=== PATIENT | female | born 1950 | race African-American/Black ===

== ENCOUNTER → 2017-08-19 | Outpatient (CLI) | payer OTHER, MEDICARE | LOC: BRMIMAGING 10:18 | PROVIDERS: ATTEND Surgery | DX: Z12.31 Encounter for screening mammogram for malignant neoplasm of breast (principal) | CPT/HCPCS: G0202 ==

== ENCOUNTER 2017-11-27 06:46 | Emergency (ER) | payer OTHER, MEDICARE ==
[2017-11-27 06:53] VITALS: TEMP 98.4
--- NOTE | 2017-11-27 07:06 | EDPHY ---
HPI/HX/ROS/PE/MDM Narrative: CHIEF COMPLAINT: Right hip pain HPI: This patient is a 67 year old female with history of hypertension, kidney disease, and breast cancer complaining of pain to her right hip. 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 She states that the physician who placed this told her there was a benign fluid tumor extending into her hip, but she did not undergo any further intervention at that time. Recently, she has had increased discomfort in her hip. On 11/18/17, she visited her primary care provider and discussed the increased pain to her hip and back. Her pcp offered a needle drainage, but the patient declined. She has tried a heating pad for relief, which is generally effective. Last night, her pain became severe. She was unable to walk or sit up and had to crawl to the bathroom. She denies any numbness or weakness in her extremities. She does have chronic lower extremity edema, which she states has increased lately. She has not taken any medication for pain relief, and states she generally does not take pain pills. She denies chest pain, shortness of breath, fever, vomiting, diarrhea, incontinence of bladder or bowels, or other associated symptoms. REVIEW OF SYSTEMS: Aside from elements discussed in the HPI, a comprehensive 10-point review of systems was reviewed and is negative. PMH: Hypertension, Chronic kidney disease (baseline creatinine 1.4), Breast cancer s/p right breast lumpectomy and radiation. Gout. (Colchicine). Pseudotumor papilledema s/p SCRIPT SUPERVISOR shunt. SOCIAL HISTORY: . at bedside. No tobacco or alcohol use. PHYSICAL EXAM: General:Patient is alert, in no acute distress. BP 226/92 at triage. ENT:Eyes are normal to inspection. ENT inspection normal. Neck: Normal inspection. Full range of motion. Respiratory:No respiratory distress. Breath sounds normal bilaterally. Cardiovascular: Regular rate and rhythm. Strong peripheral pulses. Normal cap refill. Abdomen:The abdomen is nontender to palpation. There are no peritoneal signs. There are normal bowel sounds. Back: Pain to middle of right buttock, no increased tenderness to palpation. Normal to inspection. Skin: Normal color. No rash. Warm and dry. Extremities: Compression stockings on both lower extremities. Full range of motion. Neuro: Oriented x3. Normal motor function. Normal sensory function. ED Course: This 67 year old female with history of pseudotumor papilledema s/p SCRIPT SUPERVISOR shunt presents with increasing pain to middle of her right buttock. This area is normal in appearance and nontender to palpation. Plan for x-ray pelvis and lumbar spine. The patient declines any pain medication at this time. 07:31 Reviewed x-ray of pelvis and lumbar spine. No obvious abnormalities. Plan to order CT for further evaluation. I discussed this with the patient. She is amenable to this. 08:05 Reviewed I-stat. Creatinine 1.1. Plan to proceed with CT abdomen/pelvis and lumbar spine. 08:[address] Nam, radiologist. CT shows evidence of L5-S1 degenerative spine disease. Incidental pericardial effusion noted. No evidence of tumor. Plan for lab work including CBC, chemistries. Plan for echocardiogram to further evaluate the patient's pericardial effusion. 09:07 Reassessed patient. Discussed results. 09:30 Echocardiogram shows trivial pericardial effusion. 11:00 Reassessed patient. She continues to experience considerable pain and accepts my offer of IV pain medication. Plan to administer 0.2mg IV Dilaudid. Plan to discharge home in good condition with referral to mobile paint specialist and prescription for Percocet for pain relief. Follow up and return precautions discussed. She is comfortable with this plan. MDM: This patient presents with right buttock pain, but presentation is complicated by vague history of a previous tumor in that area, as well as remote placement of a shunt for what sounds like elevated CSF pressure. For those reasons, workup was expanded to include labs and CT of the abdomen/pelvis as well as L- spine. No acute abnormalities related to her pain are noted with the exception of severe spine disease at L5-S1 which corresponds well with presentation highly suggestive of sciatica. The patient has numerous other medical issues, including a pericardial effusion, a right axillary mass under investigation and what appears to be poorly controlled HTN, but these do not appear emergent nor related to her pain. I offered the patient pain medication both during her ED stay as well as to go home with numerous times which she declined, but finally accepted prior to discharge. I think she will need close follow-up with a mobile paint specialist and I have referred her to neurosugery. At this time, I see no indication for emergent MRI - there are no signs of infection or cauda equina etc. I do not think patient is a good candidate for steroids or NSAIDs given history of renal insufficiency. - Data Points Imaging Results: Imaging Impressions Lumbar Spine X-Ray 11/27/17 07:15 Impression: Degenerative changes described above including L5-S1 spondylolisthesis. 2. Standing AP Pelvis History: Right hip pain Findings: The hip joint cartilage spaces are symmetric and normal. The femoral heads are well rounded and normally mineralized. The pelvic ring is intact. The SI joints and pubic symphysis are normally aligned. There is possibly chondrocalcinosis of the symphysis pubis. There is no other soft tissue calcification or ossification. Impression: Negative right hip. Pelvis X-Ray 11/27/17 07:15 Impression: Degenerative changes described above including L5-S1 spondylolisthesis. 2. Standing AP Pelvis History: Right hip pain Findings: The hip joint cartilage spaces are symmetric and normal. The femoral heads are well rounded and normally mineralized. The pelvic ring is intact. The SI joints and pubic symphysis are normally aligned. There is possibly chondrocalcinosis of the symphysis pubis. There is no other soft tissue calcification or ossification. Impression: Negative right hip. Abdomen CT 11/27/17 08:05 Impression: 1. Moderate pericardial effusion and cardiomegaly. 2. Moderate hiatal hernia. 3. No urinary tract obstruction. 4. Atherosclerotic aorta and iliac arteries without aneurysm. 5. Degenerative lumbar spine resulting in L5-S1 moderate central canal stenosis and moderate to severe bilateral neural foraminal stenosis. 6. No evidence of buttock soft tissue masses, fluid collections, or iliac bone destructive osseous lesions. Findings and recommendations discussed with Emergency Department physician, Dr. Kyle Mak at 0845 hours on November 27, 2017. Final report concurs with initial preliminary interpretation. Lumbar Spine CT 11/27/17 08:05 Impression: 1. L5-S1: Moderate central canal stenosis and moderate to severe bilateral neural foraminal stenosis, secondary to severe bilateral facet arthropathy, and degenerative grade 1 anterolisthesis. 2. L4-L5: Moderate central canal stenosis, secondary to moderate bilateral facet arthropathy and disk bulge. 3. No lumbar compression fractures or sacral destructive osseous lesions. 4. Please see above findings. 5. If there is persistent pain or neurological deficit, recommend MR lumbar spine, if clinically indicated. Findings and recommendations discussed with Emergency Department physician, Dr. Kyle Mak at 0850 hours on November 27, 2017. Final report concurs with initial preliminary interpretation. Imaging: Discussed imaging studies w/ call center associate Radiologist, I viewed and interpreted images myself Laboratory Results: Laboratory Results 11/27/17 07:40 11/27/17 07:40 11/27/17 11/27/17 11/27/17 08:02 07:40 07:40 WBC 6.67 10^3/uL 10^3/uL (3.80-9.50) RBC 4.35 10^6/uL 10^6/uL (4.18-5.33) Hgb 13.3 g/dL g/dL (12.6-16.3) POC Hgb 13.9 gm/dL gm/dL (12.6-16.3) Hct 40.9 % % (38.0-47.0) POC Hct 41 % % (38-47) MCV 94.0 fL fL (81.5-99.8) MCH 30.6 pg pg (27.9-34.1) MCHC 32.5 g/dL g/dL (32.4-36.7) RDW 13.2 % % (11.5-15.2) Plt Count 283 10^3/uL 10^3/uL (150-400) MPV 9.8 fL fL (8.7-11.7) Neut % (Auto) 75.4 % H % (39.3-74.2) Lymph % (Auto) 15.3 % % (15.0-45.0) [place] % (Auto) 6.7 % % (4.5-13.0) Eos % (Auto) 1.9 % % (0.6-7.6) Baso % (Auto) 0.4 % % (0.3-1.7) Nucleat RBC Rel Count 0.0 % % (0.0-0.2) Absolute Neuts (auto) 5.02 10^3/uL 10^3/uL (1.70-6.50) Absolute Lymphs (auto) 1.02 10^3/uL 10^3/uL (1.00-3.00) Absolute Monos (auto) 0.45 10^3/uL 10^3/uL (0.30-0.80) Absolute Eos (auto) 0.13 10^3/uL 10^3/uL (0.03-0.40) Absolute Basos (auto) 0.03 10^3/uL 10^3/uL (0.02-0.10) Absolute Nucleated RBC 0.00 10^3/uL 10^3/uL (0-0.01) Immature Gran % 0.3 % % (0.0-1.1) Immature Gran # 0.02 10^3/uL 10^3/uL (0.00-0.10) POC Sodium 144 mEq/L mEq/L (135-145) Sodium 143 mEq/L mEq/L (135-145) POC Potassium 3.4 mEq/L mEq/L (3.3-5.0) Potassium 3.6 mEq/L mEq/L (3.5-5.2) POC Chloride 99 mEq/L mEq/L (97-110) Chloride 101 mEq/L mEq/L (97-110) Carbon Dioxide 30 mEq/l mEq/l (22-31) Anion Gap 12 mEq/L mEq/L (8-16) POC BUN 8 mg/dL mg/dL (7-23) BUN 9 mg/dL mg/dL (7-23) Creatinine 1.0 mg/dL mg/dL (0.6-1.0) POC Creatinine 1.2 mg/dL H mg/dL (0.6-1.0) Estimated GFR 55 Glucose 94 mg/dL mg/dL (70-100) POC Glucose 97 mg/dL mg/dL (70-100) Calcium 9.7 mg/dL mg/dL (8.5-10.4) Medications Given: Discontinued Medications Hydromorphone HCl (Dilaudid) 0.2 mg IVP EDNOW ONE Stop: 11/27/17 11:02 Last Admin: 11/27/17 11:05 Dose: 0.2 mg Point of Care Test Results: 11/27/17 08:02 POC Sodium 144 POC Potassium 3.4 POC Chloride 99 POC BUN 8 POC Creatinine 1.2 H POC Glucose 97 General Time Seen by Provider: 11/27/17 06:56 Initial Vital Signs: Initial Vital Signs Temperature (C) 36.9 C 11/27/17 06:51 Heart Rate 92 11/27/17 06:51 Respiratory Rate 20 11/27/17 06:51 Blood Pressure 226/92 H 11/27/17 06:51 O2 Sat (%) 78 L 11/27/17 06:51 O2 Delivery Mode Room Air Allergies/Adverse Reactions: dexamethasone [From Decadron] Allergy (Unknown, Verified 11/27/17 06:48) dexamethasone sod phosphate [From Decadron] Allergy (Unknown, Verified 11/27/17 06:48) lisinopril Allergy (Unverified 11/27/17 06:48) SWELLING Home Medications: Medication Instructions Recorded Furosemide [Lasix 40 MG (*)] 40 mg PO BID 09/20/15 Simvastatin [Zocor] 20 mg PO DAILY@12 09/20/15 clonIDINE [Catapres (*)] 0.1 mg PO BID 09/27/15 Anastrozole [Arimidex 1 mg (*)] 1 mg PO DAILY 05/14/16 Herbals/Supplements -Info Only 1 ea PO DAILY 05/14/16 Labetalol HCl [Trandate 200 mg (*)] 600 mg PO TID 05/14/16 predniSONE [Deltasone] 20 mg PO BIDMEAL 05/14/16 amLODIPine BESYLATE [Norvasc 5 mg 5 mg PO DAILY #30 tab 05/15/16 (*)] oxyCODONE/APAP 5/325 [Percocet 1 tab PO Q4H PRN #20 tab 11/27/17 5/325 (*)] Departure - Departure Disposition: Home, Routine, Self-Care Clinical Impression: Low back pain Condition: Good Instructions: Sciatica (ED), Acute Low Back Pain (ED), Back Pain (ED) Additional Instructions: Follow up with a mobile paint specialist within one week. Return to the emergency department for severe pain, fever, numbness, difficulty walking, change in location or nature of pain or other concerns. Take Percocet as prescribed as needed for severe pain. You may continue using a heating pad. Referrals: Liborio Burns DO [Primary Care Provider] - As per Instructions Pilo Mendiola MD [Medical Doctor] - As per Instructions Prescriptions: oxyCODONE/APAP 5/325 [Percocet 5/325 (*)] 1 tab PO Q4H PRN #20 tab PRN Reason: Pain, Severe Report Scribed for: Kyle Mak Report Scribed by: Cyndi Jacobo Date of Report: 11/27/17 Time of Report: 07:06 Physician Review and Approval Statement: Portions of this note were transcribed by an ED scribe. I personally performed the history, physical exam, and medical decision making; and confirm the accuracy of the information in the transcribed note.
[2017-11-27] MEDS ORDERED: IOPAMIDOL (ISOVUE-300) 100 ML BTL ONE (08:14)
[2017-11-27 09:18] LABS: PLATELET COUNT 283 10^3/uL (150-400)
[2017-11-27 10:01] VITALS: RESP 16
--- NOTE | 2017-11-27 10:40 | ECHO ---
[email or web address] [place] [id number] Main: [phone] Fax: Transthoracic Echocardiogram Name: CANDELARIA CAMEJO MR#: [id number] Study Date: 11/27/2017 Study Time: 09:30 AM Date of : 1950 Age: 67 year(s) Height: 157.5 cm (62 in.) Weight: 92.99 kg (205 lb.) BSA: 1.93 m2 Gender: Female Examination: Limited Echo Indication: Pericardial effusion seen on CT Image Quality: Contrast: Requested by: Kyle Mak BP: / Heart Rate: Rhythm: Indication: Pericardial effusion seen on CT Procedure Staff Document Improvement Specialist: Doimtila Booth [facility] Reading Physician: Jone Vanessa MD Requesting Provider: Measurements: Chambers Valvular Assessment AV/MV Valvular Assessment TV/PV Normal Normal Normal Name Value Range Name Value Range Name Value Range EF Range: 65-70 % AV Vmax: 1.55 m/s (1 m/s-1.7 m/s) AV maxP mmHg ( - ) Continued Measurements: Findings: Left Ventricle: Mild concentric LV hypertrophy. Normal global systolic LV function. The ejection fraction is estimated to be 65-70 %. Pericardium: Trivial pericardial effusion. (No Signature Object) Patient: CANDELARIA CAMEJO Study Date: 11/27/2017 Page 1 of 1 09:30 AM [id number]
[2017-11-27] MEDS ORDERED: HYDROmorphONE/DILAUDID 1 MG/ML INJ IVP ONE ×2 (11:01→11:28)
[2017-11-27 11:17] VITALS: BP 206/79; PULSE 63; O2SAT 94
== END 2017-11-27 12:13 | disposition home or self-care (01) ==
DX: M54.5 Low back pain (principal); I12.9 Hypertensive chronic kidney disease with stage 1 through stage 4 chronic kidney disease, or unspecified chronic kidney disease; N18.9 Chronic kidney disease, unspecified; Z85.3 Personal history of malignant neoplasm of breast
CPT/HCPCS: 71045; 72100; 72132; 72170; 74177; 93308; 96374; 99285; J1170; Q9967; 82947-QW

== ENCOUNTER 2018-12-02 02:55 | Emergency (ER) | payer OTHER, MEDICARE ==
--- NOTE | 2018-12-02 03:52 | EDPHY ---
H & P Stated Complaint: right foot pain Time Seen by Provider: 12/02/18 03:45 HPI/ROS: Chief Complaint: Foot pain HPI: 68-year-old woman with a history of gout presenting with worsening right foot pain for the last 2 days. States it is similar to her prior gout. She has a history of breast cancer is worried about possible bone metastasis. No fevers or chills. She has been taking her colchicine. She took 4 yesterday without improvement. She has a history of chronic kidney disease but has taken ibuprofen in the past. Also states she has an allergy to Decadron. No fevers or chills. No falls or injuries. She has been ambulating with some discomfort. ROS: 10 systems were reviewed and were negative except those elements noted in the HPI. PMH: Gout, chronic kidney disease, breast cancer, diabetes, hypertension Social History: No smoking, no alcohol, no recreational drug use Family History: non-contributory Physical Exam: Gen: Awake, Alert, No Distress HEENT: Nose: no rhinorrhea Eyes: PERRLA, EOMI Mouth: Moist mucosa Neck: Supple, no JVD Chest: nontender, lungs clear to auscultation Heart: S1, S2 normal, no murmur Abd: Soft, non-tender, no guarding Back: no CVA tenderness, no midline tenderness Ext: no edema, right foot is moderate tenderness with midfoot swelling and tenderness at the base of the 1st metatarsal. 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 back for pamphloedema , lumpectomy R breast yesterday , CKD, HTN - Social History Smoking Status: Never smoked Constitutional: Initial Vital Signs Temperature (C) 37.6 C 12/02/18 03:00 Heart Rate 76 12/02/18 03:00 Respiratory Rate 20 12/02/18 03:00 Blood Pressure 198/110 H 12/02/18 03:00 O2 Sat (%) 92 12/02/18 03:00 O2 Delivery Mode Room Air Allergies/Adverse Reactions: dexamethasone [From Decadron] Allergy (Unknown, Verified 12/02/18 03:00) dexamethasone sod phosphate [From Decadron] Allergy (Unknown, Verified 12/02/18 03:00) lisinopril Allergy (Unverified 12/02/18 03:00) SWELLING Home Medications: Medication Instructions Recorded Furosemide [Lasix 40 MG (*)] 40 mg PO BID 09/20/15 Simvastatin [Zocor] 20 mg PO DAILY@12 09/20/15 clonIDINE [Catapres (*)] 0.1 mg PO BID 09/27/15 Anastrozole [Arimidex 1 mg (*)] 1 mg PO DAILY 05/14/16 Herbals/Supplements -Info Only 1 ea PO DAILY 05/14/16 Labetalol HCl [Trandate 200 mg (*)] 600 mg PO TID 05/14/16 predniSONE [Deltasone] 20 mg PO BIDMEAL 05/14/16 amLODIPine BESYLATE [Norvasc 5 mg 5 mg PO DAILY #30 tab 05/15/16 (*)] oxyCODONE/APAP 5/325 [Percocet 1 tab PO Q4H PRN #20 tab 11/27/17 5/325 (*)] Hydrocodone/Acetaminophen 1 - 2 each PO Q4-6PRN PRN #10 12/02/18 [Hydrocodon-Acetaminophen 5-325] tablet Medical Decision Making ED Course/Re-evaluation: 60-year-old woman with foot pain consistent with gout. No acute injury noted per me on her x-ray. There are chronic changes consistent with gout. She is already on colchicine. She has some renal insufficiency and hesitate to put on strong course of a nonsteroidals. Unfortunately she has also had some difficulties with dexamethasone. She is uncertain if she has had prednisone. Given this plan will be to start her on hydrocodone with acetaminophen which is not ideal but is our best option at this point. Will discharge with referral to primary care for follow-up. - Data Points Medications Given: Discontinued Medications Acetaminophen (Tylenol) 1,000 mg PO EDNOW ONE Stop: 12/02/18 04:31 Last Admin: 12/02/18 04:33 Dose: 1,000 mg Hydrocodone Bitart/Acetaminophen ([place] 5/325mg Prepack#6) 1 btl TAKEHOME EDNOW ONE Stop: 12/02/18 05:14 Last Admin: 12/02/18 05:27 Dose: 1 btl Ibuprofen (Motrin) 600 mg PO EDNOW ONE Stop: 12/02/18 04:28 Last Admin: 12/02/18 04:34 Dose: Not Given Departure - Departure Disposition: Home, Routine, Self-Care Clinical Impression: Gout Condition: Good Instructions: Hydrocodone/Acetaminophen (By mouth), Gout (ED) Additional Instructions: Please continue taking your colchicine as prescribed. Follow up with primary care physician in 2-3 days for further evaluation. You may take hydrocodone with acetaminophen as needed for pain. Referrals: MARIBEL HOROWITZ [Other] - As per Instructions Prescriptions: Hydrocodone/Acetaminophen [Hydrocodon-Acetaminophen 5-325] 1 - 2 each PO Q4- 6PRN PRN #10 tablet PRN Reason: Pain, Severe
[2018-12-02] MEDS ORDERED: IBUPROFEN 600 MG TAB PO ONE (04:27)
[2018-12-02] MEDS ORDERED: ACETAMINOPHEN 500 MG TAB PO ONE (04:30)
[2018-12-02] MEDS ORDERED: HYDROCOD/APAP 5/325 PREPACK#6 BTL TAKEHOME ONE (05:13)
[2018-12-02 05:27] VITALS: BP 158/78
== END 2018-12-02 05:43 | disposition home or self-care (01) ==
DX: M10.9 Gout, unspecified (principal); I12.9 Hypertensive chronic kidney disease with stage 1 through stage 4 chronic kidney disease, or unspecified chronic kidney disease; N18.9 Chronic kidney disease, unspecified; E11.9 Type 2 diabetes mellitus without complications; Z85.3 Personal history of malignant neoplasm of breast